=== PATIENT | male | born 1980 | race Two or more races ===

== ENCOUNTER 2021-11-19 08:53 | Emergency (ER) | payer MEDICAID, OTHER ==
[~2021-11-19] VITALS: Ht 170.2 cm; Wt 184.5 kg
[2021-11-19] MEDS ORDERED: SODIUM CHLORIDE 0.9% 1,000 ML IV ONE (09:45)
[2021-11-19 10:00] VITALS: BP 120/45
[2021-11-19 11:00] LABS: Basophils # (auto) 0.1 10 ^3/uL (0-0.2); Eosinophils # (auto) 0.1 10 ^3/uL (0-0.8); Monocytes # (auto) 0.4 10 ^3/uL (0-1.3); Neutrophils % (auto) 68.7 % (37.0-80.0); Nucleated Red Blood Cells % 0.1 %
[2021-11-19 11:02] LABS: Eosinophils % (auto) 1.9 % (0.0-7.0); Hematocrit 41.5 % (41.0-53.0); Hemoglobin 13.3 g/dL (13.5-17.5); Lymphocytes # (auto) 1.7 10 ^3/uL (0.4-5.4); Lymphocytes % (auto) 23.5 % (10.0-50.0); Mean Corpuscular Hemoglobin 25.3 pg (28.0-32.0); Mean Corpuscular Volume 79.2 fL (80.0-100.0); Monocytes % (auto) 4.9 % (0.0-12.0); Neutrophils # (auto) 5.1 10 ^3/uL (1.6-8.6); Red Blood Cells 5.24 10^6/uL (4.5-5.90); Red Cell Distribution Width 15.7 % (11.8-14.3); White Blood Cell 7.4 10^3/uL (4.4-10.8)
[2021-11-19 11:03] LABS: Albumin 3.5 g/dL (3.4-5.0); Calcium 8.9 mg/dL (8.5-10.1); Potassium 4.2 mmol/L (3.5-5.1)
[2021-11-19 11:29] LABS: Alcohol, Urine < 3.0 mg/dL (0-10); Amphetamine Screen, Urine NEGATIVE (NEGATIVE); Barbiturate Scree,Urine NEGATIVE (NEGATIVE); Benzodiazephine Screen, Urine NEGATIVE (NEGATIVE); Cannabinoid Screen, Urine NEGATIVE (NEGATIVE); Cocaine Screen, Urine NEGATIVE (NEGATIVE); Opiate Scree,Urine NEGATIVE (NEGATIVE); Phencyclidine Screen, Urine NEGATIVE (NEGATIVE)
[2021-11-19 11:39] LABS: Urine Bacteria NONE SEEN /hpf (None Seen); Urine Blood 3+ /uL (Negative); Urine Specific Gravity 1.018 (1.001-1.035); Urine WBC 126 /hpf (0 - 3)
[2021-11-19 11:52] LABS: BUN/Creatinine Ratio 18.8; Bilirubin, Total 0.5 mg/dL (0.2-1.0); Total Protein 7.4 g/dL (6.4-8.2)
[2021-11-19] MEDS ORDERED: CIPR-173 PO (12:44)
== END 2021-11-19 13:27 | disposition home or self-care (01) ==
LOC: ER 08:53
DX: N20.0 Calculus of kidney (principal); N39.0 Urinary tract infection, site not specified; Z88.0 Allergy status to penicillin; Z88.2 Allergy status to sulfonamides; Z88.6 Allergy status to analgesic agent
CPT/HCPCS: 36415; 74176; 80053; 80307; 81001; 85025; 96360; 96361; 99284; J7030

== ENCOUNTER 2023-05-19 10:35 | Emergency (ER) | payer MEDICAID ==
[~2023-05-19] VITALS: Ht 170.2 cm; Wt 183.2 kg
[~2023-05-19 10:35] MED LIST: CIPR-173 PO
[2023-05-19 11:32] LABS: Urine Bacteria FEW /hpf (None Seen); Urine Blood Negative /uL (Negative); Urine Clarity Clear (Clear); Urine Protein, UAD Negative (Negative); Urine Specific Gravity 1.017 (1.001-1.035); Urine Urobilinogen Normal (Negative); Urine WBC 2 /hpf (0 - 3)
[2023-05-19 11:33] LABS: Urine Color Yellow (Yellow)
[2023-05-19 11:44] LABS: Basophils # (auto) 0.1 10 ^3/uL (0-0.2); Basophils % (auto) 0.9 % (0.0-2.0); Eosinophils # (auto) 0.4 10 ^3/uL (0-0.8); Eosinophils % (auto) 4.2 % (0.0-7.0); Hematocrit 43.6 % (41.0-53.0); Hemoglobin 14.2 g/dL (13.5-17.5); Lymphocytes # (auto) 2.3 10 ^3/uL (0.4-5.4); Lymphocytes % (auto) 24.4 % (10.0-50.0); Mean Corpuscular Hemoglobin 27.5 pg (28.0-32.0); Mean Corpuscular Hgb Conc. 32.6 g/dL (32.0-36.0); Mean Corpuscular Volume 84.2 fL (80.0-100.0); Monocytes # (auto) 0.6 10 ^3/uL (0-1.3); Monocytes % (auto) 6.5 % (0.0-12.0); Neutrophils # (auto) 6.1 10 ^3/uL (1.6-8.6); Nucleated Red Blood Cells % 0.1 %; Red Blood Cells 5.17 10^6/uL (4.5-5.90); Red Cell Distribution Width 14.1 % (11.8-14.3); White Blood Cell 9.5 10^3/uL (4.4-10.8)
[2023-05-19 12:09] LABS: Alanine Aminotransferase 30 U/L (7-40); Alkaline Phosphatase 61 U/L (46-116); Anion Gap 2 (5-15); Aspartate Aminotransferase 28 U/L (13-40); BUN/Creatinine Ratio 13.8 (10.0-20.0); Blood Urea Nitrogen 11 mg/dL (9-23); Calcium 9.1 mg/dL (8.7-10.4); Carbon Dioxide 29 mmol/L (20-30); Chloride 107 mmol/L (98-107); Glucose 116 mg/dL (74-106); Lipase 45 U/L (12-53); Potassium 3.8 mmol/L (3.5-5.1); Sodium 138 mmol/L (136-145)
[2023-05-19 12:10] LABS: Bilirubin, Total 0.5 mg/dL (0.2-1.0); Total Protein 7.3 g/dL (5.7-8.2)
[2023-05-19] MEDS ORDERED: PANT40TA2 PO (13:52)
[2023-05-19] MEDS ORDERED: ZOFR4T PO (13:52)
[2023-05-19 14:09] VITALS: BP 160/76; PULSE 85; RESP 19; TEMP 98.4; O2SAT 98
== END 2023-05-19 14:16 | disposition home or self-care (01) ==
LOC: ER 10:35
DX: K29.00 Acute gastritis without bleeding (principal); J45.909 Unspecified asthma, uncomplicated; E78.5 Hyperlipidemia, unspecified; Z79.2 Long term (current) use of antibiotics; Z79.899 Other long term (current) drug therapy; Z88.0 Allergy status to penicillin; Z88.2 Allergy status to sulfonamides; Z88.5 Allergy status to narcotic agent
CPT/HCPCS: 36415; 76705; 80053; 81001; 83690; 85025